=== PATIENT | male | born 1970 | race Caucasian/White ===

== ENCOUNTER → 2018-11-22 | Outpatient (CLI) | payer BC, OTHER ==
[~2018-11-22] MED LIST: OMNIPAQUE 350 MG/ML, 100ML BOTTLE ONE
== END | disposition home or self-care (01) ==
LOC: RAD 12:28
PROVIDERS: ATTEND Emergency Medicine
DX: M51.37 Other intervertebral disc degeneration, lumbosacral region (principal); R10.9 Unspecified abdominal pain
CPT/HCPCS: 74177; Q9967

== ENCOUNTER 2019-07-28 11:15 | Emergency (ER) | payer BC ==
[~2019-07-28] VITALS: Ht 177.8 cm; Wt 79.9 kg
[2019-07-28 11:30] VITALS: BP 134/70
--- NOTE | 2019-07-28 13:21 | NUR ---
pt given IS with education, pt demonstrates understanding with teach back method, inspiratory capacity is 3000 mL. pt given dc instructions and script, pt educated regarding naproxen. pt a&o, resps even and unlabored, nadn at dc. pt amb to dc desk with steady gait.
== END 2019-07-28 13:21 | disposition home or self-care (01) ==
LOC: ED 13:00
DX: S20.211A Contusion of right front wall of thorax, initial encounter (principal); V86.69XA Passenger of other special all-terrain or other off-road motor vehicle injured in nontraffic accident, initial encounter; Y93.89 Activity, other specified; Y92.89 Other specified places as the place of occurrence of the external cause; Y99.8 Other external cause status
CPT/HCPCS: 71046; 99283